=== PATIENT | female | born 1960 | race Caucasian/White ===

== ENCOUNTER 2025-03-05 21:03 | Emergency (ER) | payer MEDICARE, MEDICAID, SELFPAY ==
[2025-03-05 21:07] VITALS: BMI 28.1
[2025-03-05 21:53] VITALS: BP 150/96; PULSE 98; RESP 18; TEMP 36.8; O2SAT 98
--- NOTE | 2025-03-05 22:07 | PD.EDFMALE ---
ED Female Urogenital RME/HPI General Chief complaint: Abdominal Pain Stated complaint: ABD PAIN LOW BACK PAIN Time Seen by Provider: 03/05/25 21:55 Arrival date/time: 03/05/25 21:03 64F with history of anxiety and hypothyroidism presents to ED with 1 month of intermittent dysuria and pelvic/flank pain. Patient states she's been taking oregano and different plant oils to try and treat it. Patient has not been on ABX. Limitations: no limitations Related Data Home Medications ?Medication ?Instructions ?Recorded ?Confirmed thyroid (pork) 120 mg tablet 1 tab PO QDAY 03/11/22 03/11/22 ([place] Thyroid) Previous Rx's ?Medication ?Instructions ?Recorded ibuprofen 600 mg tablet 600 mg PO TID PRN pain #30 tabs 04/07/22 ciprofloxacin HCl 500 mg tablet 500 mg PO BID #14 tabs 11/03/23 (Cipro) lorazepam 0.5 mg tablet (Ativan) 0.5 mg PO BID PRN anxiety #20 tabs 04/11/24 lorazepam 1 mg tablet 1 mg PO BID PRN anxiety #10 tabs 06/07/24 lorazepam 1 mg tablet 1 mg PO BID PRN anxiety #10 tabs 06/07/24 lorazepam 1 mg tablet 1 mg PO BID PRN anxiety #10 tabs 06/07/24 sulfamethoxazole 800 1 tab PO BID 7 days #14 tabs 03/05/25 mg-trimethoprim 160 mg tablet (Bactrim DS) Allergies Allergy/AdvReac Type Severity Reaction Status Date / Time cephalexin Allergy Anaphylaxis Verified 03/05/25 21:14 ciprofloxacin Allergy Verified 03/05/25 21:15 Review of Systems Review of Systems Systems Reviewed: All systems reviewed, normal except as documented Constitutional Constitutional: Reports system reviewed and no additional complaints, except as documented, Denies fever(s) and Denies headache(s) ENT Ears, Nose, Mouth, and Throat: Denies disequilibrium and Denies headache(s) Cardiovascular Cardiovascular: Reports system reviewed and no additional complaints, except as documented, Denies chest pain and Denies dyspnea Respiratory Respiratory: Reports system reviewed and no additional complaints, except as documented, Denies cough and Denies dyspnea Gastrointestinal Gastrointestinal: Reports system reviewed and no additional complaints, except as documented, Denies abdominal pain, Denies nausea and Denies vomiting Genitourinary Genitourinary: Reports as per HPI, Reports dysuria, Reports flank pain and Reports pelvic pain Neurologic Neurologic: Reports system reviewed and no additional complaints, except as documented, Denies confusion, Denies disequilibrium and Denies headache(s) Psychiatric Psychiatric: Denies confusion Past Medical History Past Medical History NEUROLOGIC: Negative Neurological Disorders CARDIAC: Positive Hypertension; Negative Cardiac Disorders or Congestive Heart Failure RESPIRATORY: Negative Chronic Obstructive Pulmonary Disease (COPD) GENITOURINARY: Negative Renal Disease MUSCULOSKELETAL: Negative Musculoskeletal Disorders ENDOCRINE: Positive Endocrine Disorders, Hyperthyroidism and Hypothyroidism; Negative Diabetes Mellitus Type 1 or Diabetes Mellitus Type 2 HEMATOLOGIC: Negative Blood Disorders OTHER HISTORY: Positive Blood Transfusions and Anesthesia Reactions; Negative Blood Transfusion Reaction Family History FAMILY HISTORY: Positive Family Cancer Surgical History SURGICAL: Positive Hysterectomy Social History SMOKING STATUS: Never smoker SUBSTANCE USE: does not use ED Exam General Limitations: Present no limitations General appearance: Present alert, in no apparent distress and anxious Head Head exam: Present atraumatic Eye Eye exam: Present normal appearance, PERRL and EOMI ENT ENT exam: Present normal exam, normal oropharynx and mucous membranes moist Neck Neck exam: Present normal inspection, full ROM and trachea midline Chest Chest inspection: Present normal inspection and symmetric chest wall rise Respiratory Respiratory exam: Present normal lung sounds bilaterally Cardiovascular Cardiovascular exam: Present regular rate, normal rhythm and normal heart sounds Abdominal Exam Abdominal exam: Present soft and normal bowel sounds Extremities Exam Extremities exam: Present normal inspection and full ROM Back Exam Back exam: Present normal inspection and full ROM Neurological Exam Neurological exam: Present alert, oriented X3 and CN II-XII intact Psychiatric Psychiatric exam: Present normal affect and normal mood Skin Skin exam: Present warm, dry, intact and normal color Course Quality Measures none Orders Category Date Time Status CBC Stat Lab 03/05/25 22:05 Completed CMP [Comprehensive Metabolic Panel] Stat Lab 03/05/25 22:05 Completed Drug Screen,Urine Stat Lab 03/05/25 22:21 Completed Free T4 (Free Thyroxine) Stat Lab 03/05/25 22:05 Completed Lipase Stat Lab 03/05/25 22:05 Completed TSH [Thyroid Stimulating Hormone] Stat Lab 03/05/25 22:05 Completed Urinalysis, C/S if Indicated Stat Lab 03/05/25 22:21 Completed Urine Culture Stat Lab 03/05/25 22:21 Received Trimethoprim/Sulfa 160/800 Ds [Bactrim Ds] Med 03/05/25 23:53 Discontinued 1 tab PO X1 ONE Vital Signs Vital signs: Vital Signs Temperature 98.2 F 03/05/25 21:53 Pulse Rate 98 03/05/25 21:53 Respiratory Rate 18 03/05/25 21:53 Blood Pressure 150/96 H 03/05/25 21:53 Pulse Oximetry (%) 98 03/05/25 21:53 Oxygen Delivery Method Room Air 03/05/25 21:53 O2 at 98% on RA and WNLs Urogenital - Female MDM Narrative MDM Narrative:: 64F with history of anxiety and hypothyroidism presents to ED with 1 month of intermittent dysuria and pelvic/flank pain. Patient states she's been taking oregano and different plant oils to try and treat it. Patient has not been on ABX. Physical exam reveals well-appearing female. Patient is afebrile, alert, but anxious. No leukocytosis. CMP unremarkable. TSH high, T4 low. Counseled to take thyroid meds. UA mild UTI. Procal/lactate normal. Swabs neg. Patient data External records reviewed:: [facility] previous records Clinical information provided by:: patient Social determinants that could affect healthcare access:: mental health Patient has the following chronic illnesses:: anxiety/hypothyroidism How is presenting disease/condition affected by chronic disease/condition?: exacerbated by Evaluation data The following diagnostics were reviewed and interpreted by me:: lab results Lab and/or radiology exams considered but not ordered:: ordered Interpretation Summary: above Medications / Prescriptions Medications or Prescriptions considered but not ordered:: ordered Medication administrations:: Medication Administration History Discontinued Medications Trimethoprim/Sulfamethoxazole (Trimethoprim/Sulfa 160/800 Ds Tablet) 1 tab PO X1 ONE Stop: 03/05/25 23:54 above Consultations Consultation(s) initiated? (list below): No Diagnosis Urogenital Female Differential Diagnosis: urinary tract infection, bacterial vaginosis, trichomoniasis, cervicitis, ovarian cyst, vaginitis, ruptured ovarian cyst, cyst of Bartholin's gland, cystitis, dysmenorrhea and other (hypothyroidism ) Most likely diagnosis given after review of the tests above:: UTI and hypothyroidism Admission Indicated Admission indicated?: not indicated Admission Request Was there a request for admission?: No Disposition Plan Disposition Plan: Discharge Discharge Attestation Discharge Attestation: The patient and all family members were given an opportunity to ask questions and understood the discharge instructions. Discharge instructions specifically effects, indications for sooner follow up or return to the emergency department, and the expected course of current diagnosis. Patient condition: Stable Discharge Plan Plan Patient Disposition: HOME (Self Care) Discharge Disposition comment: Stable Prescriptions/Referrals Prescriptions/Med Rec: New sulfamethoxazole-trimethoprim [Bactrim DS] 800-160 mg tablet 1 tab PO BID 7 Days Qty: 14 0RF No Action thyroid (pork) [[place] Thyroid] 120 mg tablet 1 tab PO QDAY ibuprofen 600 mg tablet 600 mg PO TID PRN (Reason: pain) Qty: 30 0RF lorazepam 1 mg tablet 1 mg PO BID PRN (Reason: anxiety) Qty: 10 0RF lorazepam 1 mg tablet 1 mg PO BID PRN (Reason: anxiety) Qty: 10 0RF lorazepam 1 mg tablet 1 mg PO BID PRN (Reason: anxiety) Qty: 10 0RF ciprofloxacin HCl [Cipro] 500 mg tablet 500 mg PO BID Qty: 14 0RF lorazepam [Ativan] 0.5 mg tablet 0.5 mg PO BID PRN (Reason: anxiety) Qty: 20 0RF Referrals: No Primary/Family,Physician [Primary Care Provider] - In 1 week Problem List Clinical Impression: UTI (urinary tract infection), Hypothyroidism Patient/Caregiver Discharge Instructions Education Materials: ED CYSTITIS Female Adult Additional Instructions: Please follow-up with PCP within 24-48 hours and return immediately if symptoms worsen. See PCP to resume Synthroid. Print Language: Spanish Stand Alone Forms: Patient Portal Info Letter EDITH/MARCELINO Supervising Physician EDITH/MARCELINO Supervising Physician: Dr. Pang
[2025-03-05 22:19] LABS: Basophils # (Auto) 0.1 Thou/mm3 (0.0-0.2); Basophils % (Auto) 1 % (0-2.5); Eosinophils # (Auto) 0.2 Thou/mm3 (0.0-0.5); Eosinophils % (Auto) 2 % (0-10); Hematocrit 48.7 % (36.0-46.0); Hemoglobin 16.6 g/dL (12.0-16.0); Immature Granulocytes % (Auto) 0 % (0-0); Immature Granulocytes Auto 0.03 Thou/mm3 (0.00-0.00); Lymphocytes # (Auto) 3.2 Thou/mm3 (1.0-4.8); Lymphocytes % (Auto) 38 % (10-50); Mean Corpuscular HGB Conc 34.1 g/dl (31.0-37.0); Mean Corpuscular Hemoglobin 29.4 pg (25.0-35.0); Mean Corpuscular Volume 86 fL (80-100); Monocytes # (Auto) 0.6 Thou/mm3 (0.0-0.8); Monocytes % (Auto) 7 % (0-12); Neutrophils # (Auto) 4.4 Thou/mm3 (1.8-7.7); Neutrophils % (Auto) 52 % (37-80); Nucleated Red Blood Cell % 0 /100 WBC (0); Platelet Count 275 Thou/mm3 (140-440); RDW Standard Deviation 47.8 fL (36.4-46.3); Red Blood Count 5.65 Miln/mm3 (4.00-5.20); White Blood Count 8.4 Thou/mm3 (3.6-11.0)
[2025-03-05 22:38] LABS: Collection Type, Urine Clean Catch
[2025-03-05 22:46] LABS: Alanine Aminotransferase 26 U/L (10-49); Albumin, Serum 4.9 gm/dL (3.4-4.8); Albumin/Globulin Ratio 1.7 (1.2-2.2); Alkaline Phosphatase 115 U/L (46-116); Anion Gap 11 (7-16); Aspartate Amino Transferase 38 U/L (0-34); BUN/Creatinine Ratio 13 Ratio (12-20); Bilirubin,Total 0.6 mg/dL (0.3-1.2); Blood Urea Nitrogen 17 mg/dL (9-23); Calcium 10.4 mg/dL (8.3-10.6); Calcium (Corrected) 10.4 mg/dL (8.5-10.1); Carbon Dioxide 25.9 mMol/L (20.0-31.0); Chloride 100 mMol/L (98-107); Creatinine (Component) 1.3 mg/dL (0.6-1.3); Estimated Creatinine Clearance 47.4 mL/min (>60); Free T4 (Free Thyroxine) 0.23 ng/dL (0.89-1.76); Globulin 2.9 gm/dL (2.3-3.5); Glucose 136 mg/dL (74-106); Lipase 54 U/L (12-53); Osmolality,Calculated 277 (275-295); Potassium 4.2 mMol/L (3.4-5.1); Sodium 137 mMol/L (136-145); Thyroid Stimulating Hormone 95.63 uIU/mL (0.55-4.78); Total Protein 7.8 gm/dL (5.7-8.2); eGFR 46 See Note
[2025-03-05 23:06] LABS: Amphetamine/Methamp Scrn,U Negative (Negative); Barbiturate Screen,Urine Negative (Negative); Benzodiazepines Screen,Urine Negative (Negative); Benzoylecgonine Screen, Ur Negative (Negative); Fentanyl Screen,Urine Negative (Negative); Opiate Screen,Urine Negative (Negative); THC Screen,Urine Negative (Negative)
[2025-03-05 23:21] LABS: Bacteria,Urine 1+; Bilirubin,Urine Negative (Negative); Blood,Urine Negative (Negative); Clarity,Urine Clear (Clear/Hazy); Color,Urine Lt-Yellow (Lt Yel-Yel); Glucose, Urine Negative (Negative); Ketones,Urine Negative (Negative); Leukocyte Esterase,Urine Positive (Negative); Nitrite,Urine Negative (Negative); Protein,Urine Negative (Neg - Trace); RBC,Urine 3 /hpf (0-3); Renal Epithelial Cells,Urine 2 /hpf (0-5); Specific Gravity,Urine 1.011 (1.001-1.035); Squamous Epithelial Cell,Urine 6 /hpf (0-5); Urobilinogen,Urine Negative mg/dL (0.0-1.0); WBC,Urine 17 /hpf (0-5)
[2025-03-05 23:46] LABS: Culture Indicated,Urine Yes
[2025-03-06] MEDS: TRIMETHOPRIM/SULFA 160/800 DS TABLET 1 TAB PO (00:26)
== END 2025-03-06 01:28 | disposition home or self-care (01) ==
PROVIDERS: Physician Assistant; Emergency Provider Emergency Medicine
DX: N39.0 Urinary tract infection, site not specified (principal); E03.9 Hypothyroidism, unspecified
CPT/HCPCS: 36415; 80053; 80307; 81001; 83690; 84439; 84443; 85025; 87077; 87086; 87186; 99283; A9270

== ENCOUNTER 2025-04-03 01:19 | Emergency (ER) | payer MEDICARE, MEDICAID, SELFPAY ==
--- NOTE | 2025-04-03 01:20 | EKG_ITS ---
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
[2025-04-03 01:22] VITALS: BMI 29.6
[2025-04-03 01:29] VITALS: BP 164/91; PULSE 91; RESP 18; TEMP 36.9; O2SAT 98
--- NOTE | 2025-04-03 01:53 | XR_ITS ---
Examination: PA chest single view TECHNIQUE: Upright PA chest single view Date and time: April 03, 2025 1401 hours Comparison May 21, 2024 INDICATIONS: Chest pain today. FINDINGS: Normal heart size. Lungs are clear. Moderate osteopenia. IMPRESSION: No active disease.
--- NOTE | 2025-04-03 01:54 | PD.EDRME ---
Rapid Medical Screening Exam [facility] Arrival date/time: 04/03/25 01:19 64F with history of anxiety and hypothyroidism presents to ED with several hours of burning CP and epigastric pain, as well as N/V. Chief Complaint: Chest Pain Vital signs: Vital Signs Temperature 98.4 F 04/03/25 01:29 Pulse Rate 91 04/03/25 01:29 Respiratory Rate 18 04/03/25 01:29 Blood Pressure 164/91 H 04/03/25 01:29 Pulse Oximetry (%) 98 04/03/25 01:29 Oxygen Delivery Method Room Air 04/03/25 01:29
--- NOTE | 2025-04-03 03:17 | PC.NURSE ---
WE HAD DOWN TIME FROM [id number].
[2025-04-03] MEDS: DIAZEPAM 5 MG TABLET PO (03:21)
[2025-04-03 03:37] LABS: Basophils # (Auto) 0.0 Thou/mm3 (0.0-0.2); Basophils % (Auto) 0 % (0-2.5); Eosinophils # (Auto) 0.1 Thou/mm3 (0.0-0.5); Eosinophils % (Auto) 1 % (0-10); Hematocrit 39.1 % (36.0-46.0); Hemoglobin 13.8 g/dL (12.0-16.0); Immature Granulocytes Auto 0.02 Thou/mm3 (0.00-0.00); Lymphocytes # (Auto) 3.1 Thou/mm3 (1.0-4.8); Lymphocytes % (Auto) 39 % (10-50); Mean Corpuscular HGB Conc 35.3 g/dl (31.0-37.0); Mean Corpuscular Hemoglobin 29.6 pg (25.0-35.0); Mean Corpuscular Volume 84 fL (80-100); Monocytes # (Auto) 0.7 Thou/mm3 (0.0-0.8); Monocytes % (Auto) 9 % (0-12); Neutrophils # (Auto) 4.0 Thou/mm3 (1.8-7.7); Neutrophils % (Auto) 51 % (37-80); Nucleated Red Blood Cell # 0.00 Thou/mm3 (0.00-0.00); Nucleated Red Blood Cell % 0 /100 WBC (0); Platelet Count 283 Thou/mm3 (140-440); RDW Standard Deviation 41.0 fL (36.4-46.3); Red Blood Count 4.66 Miln/mm3 (4.00-5.20); White Blood Count 7.9 Thou/mm3 (3.6-11.0)
[2025-04-03 03:52] LABS: INR 1.0 (0.9-1.3); Partial Thromboplastin Time 24.9 Seconds (22.0-36.0); Prothrombin Time 10.6 Seconds (9.0-12.2)
[2025-04-03 04:04] VITALS: BP 170/90; PULSE 73; RESP 18; TEMP 36.8; O2SAT 96
[2025-04-03 04:04] LABS: Alanine Aminotransferase 32 U/L (10-49); Albumin, Serum 4.2 gm/dL (3.4-4.8); Albumin/Globulin Ratio 1.4 (1.2-2.2); Alkaline Phosphatase 100 U/L (46-116); Anion Gap 9 (7-16); Aspartate Amino Transferase 28 U/L (0-34); BUN/Creatinine Ratio 16 Ratio (12-20); Bilirubin,Total 0.6 mg/dL (0.3-1.2); Blood Urea Nitrogen 13 mg/dL (9-23); Calcium 9.6 mg/dL (8.3-10.6); Calcium (Corrected) 9.6 mg/dL (8.5-10.1); Carbon Dioxide 23.9 mMol/L (20.0-31.0); Chloride 110 mMol/L (98-107); Creatinine (Component) 0.8 mg/dL (0.6-1.3); Estimated Creatinine Clearance 78.9 mL/min (>60); Free T4 (Free Thyroxine) 1.57 ng/dL (0.89-1.76); Globulin 2.9 gm/dL (2.3-3.5); Glucose 101 mg/dL (74-106); Lipase 34 U/L (12-53); Magnesium 2.2 mg/dL (1.6-2.6); Osmolality,Calculated 285 (275-295); Potassium 3.8 mMol/L (3.4-5.1); Sodium 143 mMol/L (136-145); Thyroid Stimulating Hormone 0.08 uIU/mL (0.55-4.78); Total Protein 7.1 gm/dL (5.7-8.2); Troponin I < 0.002 ng/mL (0.0-0.045); eGFR > 60 See Note
[2025-04-03 05:36] LABS: Troponin I < 0.002 ng/mL (0.0-0.045)
--- NOTE | 2025-04-03 07:54 | EDNOTE_ITS ---
<Statement entered by Sharon Ramos MD - 04/12/25 19:28> As co-signing physician, I was present and available for consult prn. I concur with the plan and care as documented by the midlevel provider. ED Chest Pain RME/HPI General Chief Complaint: Chest Pain Stated Complaint: CHEST PAIN,SOB Time Seen by Provider: 04/03/25 07:23 Source: patient Arrival date/time: 04/03/25 01:19 64-year-old female with a history of hypothyroidism presents to the emergency room with a chief complaint of chest pain, palpitations, epigastric pain x 1 day. Mode of arrival: ambulatory Limitations: no limitations RME / HPI RME / HPI narrative: 04/03/25 01:19 64F with history of anxiety and hypothyroidism presents to ED with several hours of burning CP and epigastric pain, as well as N/V. Related Data Home Medications ?Medication ?Instructions ?Recorded ?Confirmed thyroid (pork) 120 mg tablet 1 tab PO QDAY 03/11/22 ([place] Thyroid) Previous Rx's ?Medication ?Instructions ?Recorded ibuprofen 600 mg tablet 600 mg PO TID PRN pain #30 t abs 04/07/22 ciprofloxacin HCl 500 mg tablet 500 mg PO BID #14 tabs 11/03/23 (Cipro) lorazepam 0.5 mg tablet (Ativan) 0.5 mg PO BID PRN anx iety #20 tabs 04/11/24 lorazepam 1 mg tablet 1 mg PO BID PRN anxiety #10 tabs 06/07/24 lorazepam 1 mg tablet 1 mg PO BID PRN anxiety #10 tabs 06/07/24 lorazepam 1 mg tablet 1 mg PO BID PRN anxiety #10 tabs 06/07/24 Allergies Allergy/AdvReac Type Severity Reaction Status Date / Time cephalexin Allergy Anaphylaxis Verified 03/05/25 21:14 ciprofloxacin Allergy Verified 03/05/25 21:15 Review of Systems Review of Systems Systems Reviewed: All systems reviewed, normal except as documented Constitutional Constitutional: Reports system reviewed and no additional complaints, except as documented, Denies fatigue, Denies fever(s), Denies headache(s) and Denies weakness Eyes Eyes: Reports system reviewed and no additional complaints, except as documented, Denies blurry vision and Denies change in vision ENT Ears, Nose, Mouth, and Throat: Reports system reviewed and no additional complaints, except as documented, Denies otalgia, Denies headache(s), Denies nasal congestion, Denies throat swelling and Denies vertigo Cardiovascular Cardiovascular: Reports system reviewed and no additional complaints, except as documented, Reports chest pain, Denies dyspnea, Denies dyspnea on exertion and Reports rapid heart rate Respiratory Respiratory: Reports system reviewed and no additional complaints, except as documented, Denies chest congestion, Denies cough, Denies dyspnea, Denies dyspnea on exertion and Denies wheezing Gastrointestinal Gastrointestinal: Reports system reviewed and no additional complaints, except as documented, Denies abdominal pain, Denies cramping, Denies nausea and Denies vomiting Genitourinary Genitourinary: Reports system reviewed and no additional complaints, except as documented Musculoskeletal Musculoskeletal: Reports system reviewed and no additional complaints, except as documented and Denies back pain Integumentary/Breasts Skin/Breast: Reports system reviewed and no additional complaints, except as documented and Denies wounds Neurologic Neurologic: Reports system reviewed and no additional complaints, except as documented, Denies confusion, Denies headache(s), Denies lack of coordination, Denies vertigo and Denies weakness Psychiatric Psychiatric: Reports system reviewed and no additional complaints, except as documented, Denies anxiety, Denies confusion, Denies depression, Denies paranoia, Denies suicidal ideation and Denies tactile hallucinations Endocrine Endocrine: Reports system reviewed and no additional complaints, except as documented and Denies fatigue Hematologic/Lymphatic Hematologic/Lymphatic: Reports system reviewed and no additional complaints, except as documented and Denies lymphadenopathy Allergic/Immunologic Allergic/Immunologic: Reports system reviewed and no additional complaints, except as documented, Denies throat swelling, Denies urticaria and Denies wh eezing Past Medical History Past Medical History NEUROLOGIC: Negative Neurological Disorders CARDIAC: Positive Hypertension; Negative Cardiac Disorders or Congestive Heart Failure RESPIRATORY: Negative Chronic Obstructive Pulmonary Disease (COPD) GENITOURINARY: Negative Renal Disease MUSCULOSKELETAL: Negative Musculoskeletal Disorders ENDOCRINE: Positive Endocrine Disorders, Hyperthyroidism and Hypothyroidism; Negative Diabetes Mellitus Type 1 or Diabetes Mellitus Type 2 HEMATOLOGIC: Negative Blood Disorders OTHER HISTORY: Positive Blood Transfusions and Anesthesia Reactions; Negative Blood Transfusion Reaction Family History FAMILY HISTORY: Positive Family Cancer Surgical History SURGICAL: Positive Hysterectomy Social History SMOKING STATUS: Never smoker SUBSTANCE USE: does not use ED Exam General Limitations: Present no limitations General appearance: Present alert and in no apparent distress Head Head exam: Present atraumatic Eye Eye exam: Present normal appearance, PERRL and EOMI ENT ENT exam: Present normal exam, normal oropharynx and mucous membranes moist Neck Neck exam: Present normal inspection, full ROM and trachea midline Chest Chest inspection: Present normal inspection and symmetric chest wall rise Respiratory Respiratory exam: Present normal lung sounds bilaterally; Absent respiratory distress, wheezes, stridor, accessory muscle use or prolonged expiratory phase Cardiovascular Cardiovascular exam: Present regular rate, normal rhythm, normal heart sounds, +S1 and +S2; Absent bradycardia, tachycardia, irregular rhythm, systolic murmur, diastolic murmur, rubs, gallop, clicks or JVD Abdominal Exam Abdominal exam: Present soft and normal bowel sounds Extremities Exam Extremities exam: Present normal inspection and full ROM Back Exam Back exam: Present normal inspection and full ROM Neurological Exam Neurological exam: Present alert, oriented X3 and CN II-XII intact Psychiatric Psychiatric exam: Present normal affect and normal mood Skin Skin exam: Present warm, dry, intact and normal color Course Quality Measures none Orders Category Date Time Status EKG (ED ONLY) *Do not use* NOW Care 04/03/25 01:20 Completed EKG (ED Only) Stat Exams 04/03/25 01:20 Draft XR chest 1V portable Stat Exams 04/03/25 01:53 Taken CBC Stat Lab 04/03/25 02:01 Completed Comprehensive Metabolic Panel Stat Lab 04/03/25 02:01 Completed Free T4 (Free Thyroxine) Stat Lab 04/03/25 02:01 Completed Lipase Stat Lab 04/03/25 02:01 Completed Magnesium Stat Lab 04/03/25 02:01 Completed Partial Thromboplastin Time Stat Lab 04/03/25 02:01 Completed Prothrombin Time with INR Stat Lab 04/03/25 02:01 Completed TSH [Thyroid Stimulating Hormone] Stat Lab 04/03/25 02:01 Completed Troponin I Stat Lab 04/03/25 02:01 Completed Troponin I Stat Lab 04/03/25 05:01 Completed Aspirin Med 04/03/25 01:53 Discontinued 325 mg PO X1 ONE Diazepam [Valium] Med 04/03/25 01:58 Discontinued 5 mg PO X1 ONE Vital Signs Vital signs: Vital Signs Temperature 98.4 F 04/03/25 01:29 Pulse Rate 91 04/03/25 01:29 Respiratory Rate 18 04/03/25 01:29 Blood Pressure 164/91 H 04/03/25 01:29 Pulse Oximetry (%) 98 04/03/25 01:29 Oxygen Delivery Method Room Air 04/03/25 01:29 Chest Pain MDM Narrative MDM Narrative:: 64-year-old female with a history of hypothyroidism presents to the emergency room with a chief complaint of chest pain, palpitations, epigastric pain x 1 day. Patient is hemodynamically stable and in no apparent distress Physical examination shows clear bilateral lung sounds there is a strong and regular rhythm S1 and S2 noted no murmurs CBC CMP troponin were all within normal limits. TSH level was low free T4 level was within normal limits. Patient findings are consistent with subclinical hyperthyroidism. Patient states she was put on the [place] thyroid medication by her primary care provider 1 month ago since initiating this medication her symptoms of progressively gotten worse. 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 I consulted this case with my attending physician Dr. Ramos who agreed that the patient is ready for discharge Patient was discharged and educated to follow-up with primary care provider in the next 24 to 48 hours and return to the emergency room for any evidence of worsening signs or symptoms Patient data External records reviewed:: [facility] previous records Clinical information provided by:: patient Social determinants that could affect healthcare access:: none Patient has the following chronic illnesses:: Hypothyroidism How is presenting disease/condition affected by chronic disease/condition?: exacerbated by Evaluation data The following diagnostics were reviewed and interpreted by me:: lab results and radiology exam(s) Lab and/or radiology exams considered but not ordered:: Labs and radiology exams considered and ordered Interpretation Summary: N/A Medications / Prescriptions Medications or Prescriptions considered but not ordered:: Medication given Medication administrations:: Medication Administration History Discontinued Medications Aspirin (Aspirin 325 Mg Tablet) 325 mg PO X1 ONE Stop: 04/03/25 01:54 Last Admin: 04/03/25 01:58 Dose: 325 mg Documented By: CVL Diazepam (Diazepam 5 Mg Tablet) 5 mg PO X1 ONE Stop: 04/03/25 01:59 Last Admin: 04/03/25 03:21 Dose: 5 mg Documented By: CVL Medication given Consultations Consultation(s) initiated? (list below): No Diagnosis Chest Pain Differential Diagnosis: stable angina, atypical chest pain, st elevation myocardial infarction and other (Subclinical hyperthyroidism, thyroid storm, chest pain,) Most likely diagnosis given after review of the tests above:: Subclinical hyperthyroidism Admission Indicated Admission indicated?: not indicated Admission Request Was there a request for admission?: No Disposition Plan Disposition Plan: Discharge Discharge Attestation Discharge Attestation: The patient and all family members were given an opportunity to ask questions and understood the discharge instructions. Discharge instructions specifically effects, indications for sooner follow up or return to the emergency department, and the expected course of current diagnosis. Patient condition: Stable Discharge Plan Plan Patient Disposition: HOME (Self Care) Discharge Disposition comment: Stable Prescriptions/Referrals Prescriptions/Med Rec: No Action thyroid (pork) [[place] Thyroid] 120 mg tablet 1 tab PO QDAY ibuprofen 600 mg tablet 600 mg PO TID PRN (Reason: pain) Qty: 30 0RF lorazepam 1 mg tablet 1 mg PO BID PRN (Reason: anxiety) Qty: 10 0RF lorazepam 1 mg tablet 1 mg PO BID PRN (Reason: anxiety) Qty: 10 0RF lorazepam 1 mg tablet 1 mg PO BID PRN (Reason: anxiety) Qty: 10 0RF ciprofloxacin HCl [Cipro] 500 mg tablet 500 mg PO BID Qty: 14 0RF lorazepam [Ativan] 0.5 mg tablet 0.5 mg PO BID PRN (Reason: anxiety) Qty: 20 0RF Referrals: Eilceo Herman MD [Primary Care Provider] - In 1 week Problem List Clinical Impression: Subclinical hyperthyroidism Patient/Caregiver Discharge Instructions Education Materials: Diagnosing a Thyroid Problem, Common Thyroid Problems, ED Hyperthyroidism Additional Instructions: Please follow-up with your primary care provider in the next 24 to 48 hours Your cardiac examination was within normal limits. It is very possible that your palpitations and your symptoms are due to your thyroid medication Please make an appointment with your poultry inseminator for further management of your thyroid problems For any evidence of worsening signs or symptoms return to the emergency room immediately Print Language: [place] Island[place] Stand Alone Forms: Chandrika Award Info., Patient Portal Info Letter PA/MARCELINO Supervising Physician EDITH/MARCELINO Supervising Physician: Dr. RAMOS
== END 2025-04-03 08:00 | disposition home or self-care (01) ==
PROVIDERS: Physician Assistant; Emergency Provider Emergency Medicine; PCP Student in an Organized Health Care Education/Training Program
DX: E05.90 Thyrotoxicosis, unspecified without thyrotoxic crisis or storm (principal); R07.9 Chest pain, unspecified; R00.2 Palpitations; R10.13 Epigastric pain
CPT/HCPCS: 36415; 71045; 80053; 83690; 83735; 84439; 84443; 84484; 85025; 85610; 85730; 93005; 99283; A9270

== ENCOUNTER 2025-06-25 01:22 | Emergency (ER) | payer MEDICARE, MEDICAID, SELFPAY ==
[2025-06-25 01:22] VITALS: BP 168/94; PULSE 90; RESP 17; TEMP 36.7; O2SAT 98
[2025-06-25 01:23] VITALS: BMI 28.1
--- NOTE | 2025-06-25 01:24 | EKG_ITS ---
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
--- NOTE | 2025-06-25 01:47 | EDRME_ITS ---
Rapid Medical Screening Exam [facility] Arrival date/time: 06/25/25 01:22 Chief Complaint: Arrhythmia/Palpitations Vital signs: Vital Signs Temperature 98.0 F 06/25/25 01:22 Pulse Rate 90 06/25/25 01:22 Respiratory Rate 17 06/25/25 01:22 Blood Pressure 168/94 H 06/25/25 01:22 Pulse Oximetry (%) 98 06/25/25 01:22 Oxygen Delivery Method Room Air 06/25/25 01:22 [facility] Narrative: Reports pain and difficulty swallowing x 3-4 days. Patient concerned symptoms related to her thyroid. Thyroid US in 07/2024 was normal.
--- NOTE | 2025-06-25 01:48 | XR_ITS ---
Examination: CT soft tissue neck, with intravenous contrast. 2-D coronal reconstructions. 2-D sagittal reconstructions. Date and time of exam :June 25, 2025, 0411 hrs. Indications: Difficulty swallowing 4 days with swelling in the neck. CTDI: vol (mGy):10.9 DLP: (mGycm):265 Technique: 1.25 mm axial sections of the neck of the obtained. Coronal and sagittal reconstructions have been obtained. Intravenous contrast administered 50 cc [id number]. Low dose protocols were performed. One or more of the following dose reduction techniques were used; automated exposure control, adjustment of the mA and/or KV according to patient size, use of iterative reconstruction technique. Findings: Maxillary antra are clear Symmetrical nasopharynx No tonsillar abscess The larynx appears normal Wall of the cervical esophagus appears thickened No pathologic lymphadenopathy Normal epiglottis Satisfactory alignment cervical vertebral bodies Impression: No tonsillar abscess The larynx appears normal Normal epiglottis Edmondson of the cervical esophagus appears thickened, suggest standard fluoroscopically guided esophagram follow-up
[2025-06-25 02:20] LABS: Basophils # (Auto) 0.0 Thou/mm3 (0.0-0.2); Basophils % (Auto) 1 % (0-2.5); Eosinophils # (Auto) 0.2 Thou/mm3 (0.0-0.5); Eosinophils % (Auto) 2 % (0-10); Hematocrit 43.0 % (36.0-46.0); Hemoglobin 14.3 g/dL (12.0-16.0); Immature Granulocytes Auto 0.01 Thou/mm3 (0.00-0.00); Lymphocytes # (Auto) 2.4 Thou/mm3 (1.0-4.8); Lymphocytes % (Auto) 36 % (10-50); Mean Corpuscular HGB Conc 33.3 g/dl (31.0-37.0); Mean Corpuscular Hemoglobin 29.1 pg (25.0-35.0); Mean Corpuscular Volume 87 fL (80-100); Monocytes # (Auto) 0.6 Thou/mm3 (0.0-0.8); Monocytes % (Auto) 9 % (0-12); Neutrophils # (Auto) 3.6 Thou/mm3 (1.8-7.7); Neutrophils % (Auto) 52 % (37-80); Nucleated Red Blood Cell # 0.00 Thou/mm3 (0.00-0.00); Nucleated Red Blood Cell % 0 /100 WBC (0); Platelet Count 224 Thou/mm3 (140-440); RDW Standard Deviation 41.5 fL (36.4-46.3); Red Blood Count 4.92 Miln/mm3 (4.00-5.20); White Blood Count 6.8 Thou/mm3 (3.6-11.0)
[2025-06-25 02:41] LABS: Alanine Aminotransferase 22 U/L (10-49); Albumin, Serum 4.5 gm/dL (3.4-4.8); Albumin/Globulin Ratio 1.7 (1.2-2.2); Alkaline Phosphatase 100 U/L (46-116); Anion Gap 10 (7-16); Aspartate Amino Transferase 22 U/L (0-34); BUN/Creatinine Ratio 17 Ratio (12-20); Bilirubin,Total 0.6 mg/dL (0.3-1.2); Blood Urea Nitrogen 12 mg/dL (9-23); Calcium 9.9 mg/dL (8.3-10.6); Calcium (Corrected) 9.9 mg/dL (8.5-10.1); Carbon Dioxide 25.5 mMol/L (20.0-31.0); Chloride 110 mMol/L (98-107); Creatinine (Component) 0.7 mg/dL (0.6-1.3); Estimated Creatinine Clearance 88.1 mL/min (>60); Free T4 (Free Thyroxine) 1.58 ng/dL (0.89-1.76); Globulin 2.6 gm/dL (2.3-3.5); Glucose 108 mg/dL (74-106); Osmolality,Calculated 289 (275-295); Potassium 3.8 mMol/L (3.4-5.1); Sodium 145 mMol/L (136-145); Thyroid Stimulating Hormone 0.85 uIU/mL (0.55-4.78); Total Protein 7.1 gm/dL (5.7-8.2); eGFR > 60 See Note
[2025-06-25 03:50] VITALS: BP 175/102; PULSE 81; RESP 12; TEMP 36.9; O2SAT 98
[2025-06-25 04:58] VITALS: BP 145/82; PULSE 68; RESP 11; O2SAT 95
--- NOTE | 2025-06-25 05:17 | PRELIM_ITS ---
CT scan of the neck with intravenous contrast (axial sections with sagittal and coronal reformats) June 25, 2025 0411 hours Clinical History: trouble swallowing x4d Comparison: None available at the time of this report. Findings: Soft tissue thickening at the level of the hypopharynx. The nasopharynx, oropharynx, supraglottic and infraglottic larynx, vocal cords and upper trachea are unremarkable. The epiglottis and aryepiglottic folds appear unremarkable. No enhancing lesion or fluid collection is identified. The vessels of the neck are well opacified. No filling defect is seen. The superficial soft tissues of the neck are unremarkable. The osseous structures are unremarkable. Impression: Soft tissue thickening at the level of the hypopharynx, correlation with direct visualization is recommended. Report Electronically Signed By: Ta Virk 06/25/2025 5:17:07 AM [EST]
[2025-06-25 06:54] VITALS: BP 153/86; PULSE 66; RESP 16; TEMP 36.5; O2SAT 97
--- NOTE | 2025-06-25 07:33 | EDNOTE_ITS ---
ED Neck Injury Pain RME/HPI General Chief Complaint: Arrhythmia/Palpitations Stated Complaint: PALPITATIONS Time Seen by Provider: 06/25/25 07:32 Arrival date/time: 06/25/25 01:22 Limitations: no limitations RME / HPI RME / HPI Narrative: Reports pain and difficulty swallowing x 3-4 days. Patient concerned symptoms related to her thyroid. Thyroid US in 07/2024 was normal. 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 Denies fevers chills nausea vomiting cough runny nose. Patient does feel that she has a lot more phlegm than normal. Denies any difficulty breathing recent travel sick contacts. No drugs alcohol no smoking. Related Data Home Medications ?Medication ?Instructions ?Recorded ?Confirmed thyroid (pork) 120 mg tablet 1 tab PO QDAY 03/11/22 (Ida Thyroid) Previous Rx's ?Medication ?Instructions ?Recorded ibuprofen 600 mg tablet 600 mg PO TID PRN pain #30 t abs 04/07/22 ciprofloxacin HCl 500 mg tablet 500 mg PO BID #14 tabs 11/03/23 (Cipro) lorazepam 0.5 mg tablet (Ativan) 0.5 mg PO BID PRN anx iety #20 tabs 04/11/24 lorazepam 1 mg tablet 1 mg PO BID PRN anxiety #10 tabs 06/07/24 lorazepam 1 mg tablet 1 mg PO BID PRN anxiety #10 tabs 06/07/24 lorazepam 1 mg tablet 1 mg PO BID PRN anxiety #10 tabs 06/07/24 epinephrine 0.3 mg/0.3 mL 0.3 ml subcut .q 5 min PRN 0 06/25/25 injection, auto-injector hypersensitivity reaction #2 ea Allergies Allergy/AdvReac Type Severity Reaction Status Date / Time cephalexin Allergy Anaphylaxis Verified 06/25/25 01:24 ciprofloxacin Allergy Verified 06/25/25 01:24 ED Exam General Limitations: Present no limitations General appearance: Present alert and in no apparent distress Head Head exam: Present atraumatic and normocephalic Eye Eye exam: Present normal appearance and PERRL; Absent conjunctival injection ENT ENT exam: Present normal exam, normal oropharynx and mucous membranes moist (Oropharynx is patent, uvula midline, not swollen, not deviated, no swelling appreciated below the tongue, the tongue is not elevated no deviated, no stridor, patient is speaking) Neck Neck exam: Present normal inspection, trachea midline and thyromegaly; Absent tenderness or lymphadenopathy Chest Chest inspection: Present normal inspection and symmetric chest wall rise Respiratory Respiratory exam: Present normal lung sounds bilaterally; Absent respiratory distress, wheezes, stridor or accessory muscle use Cardiovascular Cardiovascular exam: Present regular rate and normal rhythm Abdominal Exam Abdominal exam: Present soft; Absent distention, tenderness, guarding or rebound Extremities Exam Extremities exam: Present normal inspection Neurological Exam Neurological exam: Present oriented X3 and CN II-XII intact Psychiatric Psychiatric exam: Present normal affect and normal mood Course Quality Measures none Orders Category Date Time Status CT Screening NOW Care 06/25/25 01:48 Active EKG (ED ONLY) *Do not use* NOW Care 06/25/25 01:24 Completed IV [Insert IV] NOW Care 06/25/25 03:[address] soft tissue neck w con Stat Exams 06/25/25 01:48 Completed EKG (ED Only) Stat Exams 06/25/25 01:24 Draft CBC Stat Lab 06/25/25 02:04 Completed CMP [Comprehensive Metabolic Panel] Stat Lab 06/25/25 02:04 Completed Free T4 (Free Thyroxine) Stat Lab 06/25/25 02:04 Completed TSH [Thyroid Stimulating Hormone] Stat Lab 06/25/25 02:04 Completed Dexamethasone Inj [Decadron Inj] Med 06/25/25 08:45 Discontinued 10 mg IV X1 ONE DiphenhydrAMINE INJ [Benadryl Inj] Med 06/25/25 07:37 Discontinued 25 mg IVP X1 ONE Famotidine Inj [Pepcid Inj] Med 06/25/25 07:37 Discontinued 20 mg IVP X1 ONE amLODIPine BESYLATE [Norvasc] Med 06/25/25 07:56 Discontinued 5 mg PO X1 ONE Vital Signs Vital signs: Vital Signs Temperature 98.0 F 06/25/25 01:22 Pulse Rate 90 06/25/25 01:22 Respiratory Rate 17 06/25/25 01:22 Blood Pressure 168/94 H 06/25/25 01:22 Pulse Oximetry (%) 98 06/25/25 01:22 Oxygen Delivery Method Room Air 06/25/25 01:22 Neck Pain MDM Narrative MDM Narrative:: Patient is a 64-year-old female into the emergency department concerns for difficulty swallowing. Per provide evaluate patient. Ordered labs EKG CT neck soft tissue. Offered medication for symptom relief. Vital signs and exam as listed. Concern for ACS arrhythmia electrolyte abnormality thyroid dysfunction soft tissue mass in the neck amongst others. Labs without leukocytosis, no anemia, no thrombocytosis or thrombocytopenia. No significant acute electrolyte abnormalities. No transaminitis, no significant thyroid dysfunction. TSH and free T4 within normal limits. EKG performed today at 130 3 in the morning notable for sinus rhythm, normal intervals, nonspecific T wave changes, not a cardiac alert. CT neck soft tissue with soft tissue thickening at the level of the hypopharynx per the radiologist. The nasopharynx, oropharynx, supraglottic and infraglottic larynx, vocal cords and upper trachea are unremarkable. The epiglottis and aryepiglottic folds are unremarkable. No enhancing nor fluid collection appreciated. No filling defect in the neck blood vessels. The superficial neck soft tissue is unremarkable. On my assessment, patient is not in any distress, breathing comfortably on room air, satting greater than 95%. Speaking in complete sentences. Nonlabored respirations. No stridor, no lymphadenopathy no swelling appreciated in the neck, the oropharynx is patent, uvula is midline, no swelling, no redness in the posterior oropharynx, tongue is not elevated or deviated unremarkable assessment. Had extensive conversation with the patient. Patient states that she has been taking propranolol again, in the past has had an allergic reaction to propranolol resulting in swelling to her throat. Given findings on CT as well as her history, will treat patient for allergic reaction with steroids and antihistamines. Advised patient to stop taking her propranolol. Given that patient has a history of SAL induced angioedema she has been limited on what medication she has been taking for her blood pressure. Patient does not have a contact center agent to help her with blood pressure management. States that when her blood pressure is out of control and she feels lightheaded like she is going to pass out. I discussed with her discontinuing her propranolol and given her history of angioedema that it is important that she establish care with a contact center agent to further discuss her blood pressure management. Patient was concerned about not having any medication for blood pressure management until then, and requested that we try medication for blood pressure control here in the emergency department and if she tolerates she would like to get a prescription for the medication in the interim until she sees a contact center agent. Given that patient is not in any distress, and her concerns of her symptomatic hypertension when her blood pressure is not controlled at home, consulted pharmacist Stephan for medication recommendations. Discussed patient's SAL induced angioedema and her current reaction to propranolol. Recommended that we try amlodipine. Patient also mention that she is in the process of being evaluated for goiter with her primary care doctor. I did offer patient a thyroid ultrasound however she declined at this time. Wants to perform this as an outpatient. She has an appointment on Tuesday 8:15a went to speak to patient because she was concerned about the Decadron and the amlodipine. Patient states that she was concerned about taking the Decadron as it can increase her blood pressure. I shared with her that the Decadron was for possible allergic reaction however if she wants to decline we can hold off and observe her further. Patient states that she would like to move forward with taking the Decadron here. States that she does not want to take the amlodipine here in the emergency department but would like a prescription for amlodipine for home. She would like to take it at home when the medications given here in the emergency department wear off. I shared with her that given my consult with the pharmacist that I feel comfortable with that however I can also administer here and observe her to make sure that she tolerates the medication well. Patient would like to hold off on amlodipine administration here and again is requesting a prescription for home. Patient states that she will use her EpiPen and call 911 in the event that she has any difficulty breathing, or concerns for allergic reaction or any other symptom of concern. 9:52a went to reevaluate patient, patient not in any distress, breathing comfortably, no stridor, oropharynx is patent, no swelling, uvula is midline, tongue not elevated not deviated, patient speaking in complete sentences swallowing without any difficulty. Patient states that she initially felt a little off as the steroid was infusing however now the symptoms have resolved. She is sleepy. had extensive conversation with the patient, and given that she is prone to allergic reactions from medications, has sensitivities to medica tions, and felt the way she did today, I will not be prescribing amlodipine for her today as she has been served by her primary care doctor and a contact center agent that we will be able to follow her closely. Patient given extensive return precautions. Patient in agreement treatment plan. Patient data External records reviewed:: [facility] previous records Clinical information provided by:: patient Social determinants that could affect healthcare access:: none Patient has the following chronic illnesses:: See MDM How is presenting disease/condition affected by chronic disease/condition?: exacerbated by Evaluation data The following diagnostics were reviewed and interpreted by me:: lab results, radiology exam(s) and EKG tracing(s) Lab and/or radiology exams considered but not ordered:: None Interpretation Summary: See MD Medications / Prescriptions Medications or Prescriptions considered but not ordered:: None Medication administrations:: Medication Administration History Discontinued Medications Amlodipine Besylate (Amlodipine Besylate 5 Mg Tablet) 5 mg PO X1 ONE Stop: 06/25/25 07:57 Last Admin: 06/25/25 08:41 Dose: Not Given Documented By: JUDY Non-Admin Reason: Patient Refused Dexamethasone Sodium Phosphate (Dexamethasone Sod Phos Inj 10 Mg/Ml Vial) 10 mg IV X1 ONE Stop: 06/25/25 08:46 Last Admin: 06/25/25 08:54 Dose: 10 mg Documented By: THERESA Diphenhydramine HCl (Diphenhydramine Inj 50 Mg/Ml Vial) 25 mg IVP X1 ONE Stop: 06/25/25 07:38 Last Admin: 06/25/25 07:54 Dose: 25 mg Documented By: JDUY Famotidine (Famotidine Inj 10 Mg/Ml Vial 2 Ml) 20 mg IVP X1 ONE Stop: 06/25/25 07:38 Last Admin: 06/25/25 07:55 Dose: 20 mg Documented By: JUDY See above Consultations Consultation(s) initiated? (list below): Yes Consultation #1 (Physician, Specialty, Details): See MDM Diagnosis Neck Differential Diagnosis: other Most likely diagnosis given after review of the tests above:: Allergic reaction Admission Indicated Admission indicated?: not indicated Admission Request Was there a request for admission?: No Disposition Plan Disposition Plan: Discharge Discharge Attestation Discharge Attestation: The patient and all family members were given an opportunity to ask questions and understood the discharge instructions. Discharge instructions specifically effects, indications for sooner follow up or return to the emergency department, and the expected course of current diagnosis. Patient condition: Stable Critical Care Time Critical Care Time Critical Care Time: Yes Total Critical Care Time (min.): 30 Attestation: I spent 30minutes of critical care time with this patient not including reportable procedures. There was an acute impairment of an organ system with a high probability of imminent or life threatening deterioration in the patient's condition. Interventions and changes required in the course of therapy are located in the chart. Time involved was spent in direct patient care, reviewing ancillary data, old records, consulting with decision makers, EMS, other doctors, giving orders and documenting. Discharge Plan Plan Patient Disposition: HOME (Self Care) Prescriptions/Referrals Prescriptions/Med Rec: New epinephrine 0.3 mg/0.3 mL auto-injector 0.3 ml subcut .q 5 min PRN (Reason: hypersensitivity reaction) Qty: 2 0RF No Action thyroid (pork) [Ida Thyroid] 120 mg tablet 1 tab PO QDAY ibuprofen 600 mg tablet 600 mg PO TID PRN (Reason: pain) Qty: 30 0RF lorazepam 1 mg tablet 1 mg PO BID PRN (Reason: anxiety) Qty: 10 0RF lorazepam 1 mg tablet 1 mg PO BID PRN (Reason: anxiety) Qty: 10 0RF lorazepam 1 mg tablet 1 mg PO BID PRN (Reason: anxiety) Qty: 10 0RF ciprofloxacin HCl [Cipro] 500 mg tablet 500 mg PO BID Qty: 14 0RF lorazepam [Ativan] 0.5 mg tablet 0.5 mg PO BID PRN (Reason: anxiety) Qty: 20 0RF Referrals: Renay Emanuel FNP-C [Primary Care Provider] - In 1 week Problem List Clinical Impression: Allergic reaction Patient/Caregiver Discharge Instructions Additional Instructions: Please establish care with a contact center agent to discuss blood pressure management given your sensitivity to SAL inhibitors as well as propranolol. It is important that you establish care with an habilitation specialist. I also recommend that you get an appointment to see an sewer pipe offbearer for further evaluation. Please return immediately if you have any difficulty breathing, sensation of worsening swelling, fever or any other symptom of concern. Print Language: Egyptian Stand Alone Forms: Chandrika Award Info., Patient Portal Info Letter
[2025-06-25] MEDS: FAMOTIDINE INJ 10 MG/ML VIAL 2 ML 20 MG IVP (07:55)
[2025-06-25] MEDS: DEXAMETHASONE SOD PHOS INJ 10 MG/ML VIAL IV (08:54)
[2025-06-25 10:00] VITALS: BP 157/99; PULSE 71; RESP 16; TEMP 36.7; O2SAT 97
== END 2025-06-25 10:20 | disposition home or self-care (01) ==
PROVIDERS: Physician Assistant; Emergency Provider Emergency Medicine
DX: T78.40XA Allergy, unspecified, initial encounter (principal); I10 Essential (primary) hypertension; R13.10 Dysphagia, unspecified
CPT/HCPCS: 36415; 70491; 80053; 84439; 84443; 85025; 93005; 96374; 96375; 99284; A4649; J1100; J1200; J3490; Q9967